=== PATIENT | female | born 1960 | race Caucasian/White ===

== ENCOUNTER 2016-06-21 16:14 | Emergency (ER) | payer BC ==
[2016-06-21 16:20] VITALS: BP 153/74; PULSE 78; RESP 16; TEMP 98.2; O2SAT 100
--- NOTE | 2016-06-21 17:05 | UCPHY ---
H & P Patient Type: Established Chief Complaint Nursing Narrative: cough/congestion/cold/constant drainage for 1.5 weeks. denies fevers, N/V/D. Time Seen by Provider: 06/21/16 16:59 HPI/ROS: CHIEF COMPLAINT: Sinus congestion, cough HISTORY OF PRESENT ILLNESS: The patient is a 56-year-old female who comes to the Urgent Care requesting antibiotics. She states that she has had a cold for the last 10 days primarily in her sinuses and cough at night when she lays flat. She has not had any difficulty breathing. She has not had a fever. She does have some pressure in her ears as well. She states that these symptoms are typical for her when she gets a cold and that her symptoms typically last for about 6 weeks before resolving. She states however that she has a niece who's baby she needs to take care of and she is worried about getting the baby sick. She is here requesting antibiotics to see if that will help her sinusitis improve quicker. REVIEW OF SYSTEMS: Constitutional: denies: chills, fever, recent illness, recent injury EENTM: See HPI Respiratory: denies: cough, shortness of breath Cardiac: denies: chest pain, irregular heart rate, lightheadedness, palpitations Gastrointestinal/Abdominal: denies: abdominal pain, diarrhea, nausea, vomiting, blood streaked stools Genitourinary: denies: dysuria, frequency, hematuria, pain Musculoskeletal: denies: joint pain, muscle pain Skin: denies: lesions, rash, jaundice, bruising Neurological: denies: headache, numbness, paresthesia, tingling, dizziness, weakness Hematologic/Lymphatic: denies: blood clots, easy bleeding, easy bruising Immunologic/allergic: denies: HIV/AIDS, transplant EXAM: GENERAL: Well-appearing, well-nourished and in no acute distress. HEAD: Atraumatic, normocephalic. EYES: Pupils equal round and reactive to light, extraocular movements intact, sclera anicteric, conjunctiva are normal. ENT: Sinus congestion, effusion behind both tympanic membranes, mild jaw pain with biting NECK: Normal range of motion, supple without lymphadenopathy or JVD. LUNGS: Breath sounds clear to auscultation bilaterally and equal. No wheezes rales or rhonchi. HEART: Regular rate and rhythm without murmurs, rubs or gallops. ABDOMEN: Soft, nontender, normoactive bowel sounds. No guarding, no rebound. No masses appreciated. BACK: No CVA tenderness, no spinal tenderness, step-offs or deformities EXTREMITIES: Normal range of motion, no pitting or edema. No clubbing or cyanosis. NEUROLOGICAL: Cranial nerves II through XII grossly intact. Normal speech, normal gait. 5/5 strength, normal movement in all extremities, normal sensation PSYCH: Normal mood, normal affect. SKIN: Warm, dry, normal turgor, no visible rashes or lesions. Source: Patient Exam Limitations: No limitations - Personal History Current Tetanus Diphtheria and Acellular Pertussis (TDAP): Yes - Medical/Surgical History Hx Asthma: Yes Hx Chronic Respiratory Disease: No Hx Diabetes: No Hx Cardiac Disease: No Hx Renal Disease: No Hx Cirrhosis: No Hx Alcoholism: No Hx HIV/AIDS: No Hx Splenectomy or Spleen Trauma: No Other PMH: oophorectomy, ortho - Family History Significant Family History: No pertinent family hx - Social History Smoking Status: Never smoked Alcohol Use: Sober Drug Use: None Constitutional: Initial Vital Signs Temperature (C) 36.8 C 06/21/16 16:16 Heart Rate 78 06/21/16 16:16 Respiratory Rate 16 06/21/16 16:16 Blood Pressure 153/74 H 06/21/16 16:16 O2 Sat (%) 100 06/21/16 16:16 O2 Delivery Mode Room Air Allergies/Adverse Reactions: Sulfa (Sulfonamide Antibiotics) Allergy (Verified 06/21/16 16:20) Home Medications: Medication Instructions Recorded AZITHROMYCIN [Z-PACK] 250 mg PO DAILY #6 tab 06/21/16 Medical Decision Making ED Course/Re-evaluation: Patient has a history and symptoms consistent with sinusitis. She is requesting antibiotics. I think that this is reasonable. I will give her prescription for azithromycin. This may be viral in it may not improve her symptoms which she understands. She declines further workup or testing at this time. Differential Diagnosis: Partial list of the Differential diagnosis considered include but were not limited to; sinusitis, upper respiratory tract infection and although unlikely based on the history and physical exam, I also considered pneumonia, pertussis, abscess, meningitis, acute coronary disease. I discussed these differential diagnoses and the plan with the patient as well as the usual and expected course. The patient understands that the diagnosis is provisional and that in medicine we are not always correct and that further workup is often warranted. Usual and customary warnings were given. All of the patient's questions were answered. The patient was instructed to return to the emergency department should the symptoms at all worsen or return, otherwise to followup with the physician as we discussed. Departure - Departure Disposition: Home, Routine, Self-Care Clinical Impression: Sinusitis Qualifiers: Sinusitis location: maxillary Chronicity: acute Recurrence: recurrent Qualified Code(s): J01.01 - Acute recurrent maxillary sinusitis Condition: Fair Instructions: Sinusitis (ED) Referrals: Ronel Suarez MD [Primary Care Provider] - As per Instructions Prescriptions: AZITHROMYCIN [Z-PACK] 250 mg PO DAILY #6 tab - PQRS PQRS Measurement: 134: Depression screening and followup, PRIME MD-PHQ2 (12 years and older) Over the last 2 weeks, how often have you been bothered by any of the following problems? 1. Feeling down, depressed, or hopeless? 2. Little interest or pleasure in doing things? Patient answered no to both 1 and 2 130: Documentation of medications. Reviewed all patient medications, doses, route and frequency. 226: Do you smoke? No. 47: 65 and older: Advanced care planning. Patient designates surrogate decision maker as spouse . Patient has advanced directive. 51: 18 years old and older with diagnosis of COPD, spirometry performance. Spirometry not performed; equipment not available. 52: 18 years old and older with COPD and symptoms of COPD or FEV1<60% predicted prescribed a B Agonist. Not applicable
== END 2016-06-21 17:35 | disposition home or self-care (01) ==
LOC: CED 16:14
DX: J32.9 Chronic sinusitis, unspecified (principal); J45.909 Unspecified asthma, uncomplicated
CPT/HCPCS: G0463-PO

== ENCOUNTER → 2018-02-26 | Outpatient (CLI) | payer BC | LOC: FIMAGING 09:20 | PROVIDERS: ATTEND Family Medicine | DX: Z13.820 Encounter for screening for osteoporosis (principal); M81.0 Age-related osteoporosis without current pathological fracture; Z78.0 Asymptomatic menopausal state; Z79.890 Hormone replacement therapy ==